=== PATIENT | female | born 1950 | race Caucasian/White ===

== ENCOUNTER 2019-09-17 10:07 | Inpatient (IN) | payer OTHER, MEDICARE ==
[2019-09-17] VITALS (12 sets, daily range): BP systolic 160–189; BP diastolic 91–115
[~2019-09-17] VITALS: Ht 167.6 cm; Wt 80.0 kg
[2019-09-17] MEDS ORDERED: OMEPRAZOLE 20 M20 M1 PO (10:16)
[2019-09-17] MEDS ORDERED: DIAZEPAM 10 MG10 M1 PO (10:16)
[2019-09-17] MEDS ORDERED: EZALLOR SPRINKLE5 MG PO (10:17)
[2019-09-17] MEDS ORDERED: REQUIP 0.25 M0.25 MG PO (10:17)
[2019-09-17 11:40] LABS: ABSOLUTE NEUTROPHILS 8.6 thou/uL (1.4-8.2); BASOPHILS 0.2 % (0.0-2.0); EOSINOPHILS 0.5 % (0.0-3.0); HEMATOCRIT 43.9 % (37.0-47.0); HEMOGLOBIN 15.3 gm/dL (12.0-15.0); LYMPHOCYTES 10.2 % (24.0-44.0); MCH 33.5 pg (26.0-34.0); MCV 95.7 fL (80.0-100.0); MONOCYTES 2.6 % (1.0-8.0); PLATELET COUNT 259 thou/uL (150-400); POLYS 86.5 % (36.0-66.0); RBC 4.58 mil/uL (4.20-5.00); RDW 11.4 % (10.5-14.5); WBC 9.9 thou/uL (4.0-11.0)
[2019-09-17 11:49] LABS: CALCIUM 9.3 mg/dL (8.5-10.1); CREATININE 0.8 mg/dL (0.6-1.0); POTASSIUM 3.9 mmol/L (3.5-5.1)
--- NOTE | 2019-09-17 13:06 | NUR ---
THE PT'S GOWN AND BED LINENS WERE CHANGED DO TO THE PT'S PLACING THE PT ON A BEDPAIN AND URINE SPILLING ON THE BED.
--- NOTE | 2019-09-17 15:18 | 2DMMODE ---
[facility] [address] [facility] [place] [address] 2 D/M-MODE ECHOCARDIOGRAM Name: JAYLA ORTIZ Room #: 170-6 ADM IN M.R.#: [id number] Admission: 09/17/19 Attend Phys: Sharath Oconnor MD Discharge: Date of : 52 Report #: [id number] THIS REPORT FOR: cc: Ness Wright MD, Cynthia MD Lammoglia, Francisco J. MD ~ APPROVED REPORT Study performed: 09/17/2019 14:17:34 EXAM: Comprehensive 2D, Doppler, and color-flow Echocardiogram Patient Location: ER Room #: 6 Status: routine BSA: 1.91 HR: 107 bpm BP: 177/109 mmHg Rhythm: Tachycardia Other Information Study Quality: Adequate Indications Dizziness and Vertigo Hypertension/HDD 2D Dimensions IVSd: 9.02 (7-11mm) LVOT Diam: 18.15 (18-24mm) LVDd: 38.75 mm PWd: 7.90 (7-11mm) Ascending Ao: 28.28 (22-36mm) LVDs: 24.66 (25-40mm) Aortic Root: 27.15 mm Aortic Valve AoV Peak Steve.: 0.99 m/s AO Peak Gr.: 3.89 mmHg LVOT Max P.93 mmHg LVOT Max V: 0.99 m/s JOAN Vmax: 2.60 cm2 Pulmonary Valve PV Peak Steve.: 0.98 m/s PV Peak Gr.: 3.85 mmHg Tricuspid Valve TR Peak Steve.: 2.83 m/s [facility] [address] [place] [address] 2 D/M-MODE ECHOCARDIOGRAM Name: JAYLA ORTIZ Room #: 170-6 ADM IN M.R.#: [id number] Admission: 09/17/19 Attend Phys: Luis Enrique Mijares Discharge: Date of : 52 Report #: [id number] TR Peak Gr.: 32.14 mmHg PA Pressure: 32.00 mmHg Left Ventricle The left ventricle is normal size. There is normal LV segmental wall motion. There is normal left ventricular wall thickness. Left ventricular systolic function is normal. The left ventricular ejection fraction is within the normal range. LVEF is 60-65%. This study is not technically sufficient to allow evaluation of the LV diastolic function. Right Ventricle The right ventricle is normal size. The right ventricular systolic function is normal. Atria The left atrium size is normal. The right atrium size is normal. Aortic Valve The aortic valve is normal in structure. No aortic regurgitation is present. There is no aortic valvular stenosis. Mitral Valve The mitral valve is normal in structure. There is no mitral valve regurgitation noted. No evidence of mitral valve stenosis. Tricuspid Valve The tricuspid valve is normal in structure. There is trace tricuspid regurgitation. Estimated PAP 32 mmHg plus the right atrial pressure. There is moderate pulmonary hypertension. Pulmonic Valve The pulmonary valve is normal in structure. There is no pulmonic valvular regurgitation. Great Vessels The aortic root is normal in size. IVC is normal in size and collapses >50% with inspiration. Pericardium There is no pericardial effusion. <Conclusion> The left ventricle is normal size. LVEF is 60-65%. [facility] [address] [place] [address] 2 D/M-MODE ECHOCARDIOGRAM Name: JAYLA ORTIZ Room #: 170-6 ADM IN [facility].#: [id number] Admission: 09/17/19 Attend Phys: Luis Enrique Mijares Discharge: Date of : 52 Report #: [id number] The aortic valve is normal in structure. The mitral valve is normal in structure. The tricuspid valve is normal in structure. There is trace tricuspid regurgitation. Estimated PAP 32 mmHg plus the right atrial pressure. There is moderate pulmonary hypertension. The pulmonary valve is normal in structure. There is no pericardial effusion. <ELECTRONICALLY SIGNED> By: Hemanth Kim MD 09/17/19 1517 1517 16 Hemanth Kim MD /INF
--- NOTE | 2019-09-17 16:04 | EKG ---
[facility] [place] [address] ELECTROCARDIOGRAM REPORT Name: JAYLA ORTIZ Room #: 217-P ADM IN M.R.#: [id number] Admission: 09/17/19 Attend Phys: Sharath Oconnor MD Discharge: Date of : 52 Report #: [id number] THIS REPORT FOR: cc: Ness Wright MD, Cynthia MD Couchonnal,Benny Velazquez MD ~ THIS REPORT FOR: //name// [facility] ED Test Date: 2019-09-17 Test Time: 10:19:03 Pat Name: JAYLA ORTIZ Department: Room: [facility] Gender: F Voucher Examiner: [facility] : 1950 Requested By: Mike Samuels Order Number: [id number] MD: Benny Emmanuel Measurements Intervals [place] Rate: 91 P: 50 AR: 205 QRS: 39 QRSD: 94 T: 52 QT: 356 QTc: 439 Interpretive Statements Sinus rhythm Low voltage, precordial leads No previous ECG available for comparison Electronically Signed On 09-17-2019 16:03:24 CDT by Benny Emmanuel [email or web address] <ELECTRONICALLY SIGNED> By: Benny Emmanuel MD 09/17/19 1603 1019 1019 Benny Emmanuel MD /EPI
--- NOTE | 2019-09-17 20:47 | NUR ---
ASSUMMED PT CARE AT APPROXIMATELY 1600. PT A&O X4. ASSESSMENT CHARTED. FALL PRECAUTIONS IN PLACE. PT DENIES HAVING CHEST PAIN. PT DENIES HAVING SOB. PT STATED SHE HAD HEADACHE. PT RECEIVED ANALGESICS. PT STATED ANALGESICS HELPED RELIEVE HEADACHE. PT STATED SHE HAD DIZZINESS. PT STATED MEDICATIONS DID NOT HELP C DIZZINESS. PRIOR TO PT HAVING CT, I SPOKE C DR. KELLEY REGAURDING LABETALOL ORDER. DR. KELLEY STATED TO WAIT TO GIVE LABETALOL AFTER CT. PT RETURNED FROM CT. LABETALOL GIVEN AFTER CT. BLOOD PRESSURE PARAMETERS FOLLOWED. SPOKE C DR. KELLEY REGAURDING CT RESULTS. DR. KELLEY STATED TO INFORM SASH STICKER HOSPITALIST REGAURDING POSSIBLE TRANSFER AND TO HAVE HOSPITALIST CALL HIM. CALLED Arnulfo SANCHEZ NP AND INFORMED HER OF DR. KELLEY'S MESSAGE. EVELIA SANCHEZ STATED UNDERSTANDING AND STATED SHE WOULD CALL DR. KELLEY. CALLED SASH STICKER WELDER FABRICATOR ROSIO OF POSSIBLE PT TRANSFER. WELDER FABRICATOR STATED UNDERSTANDING. GAVE SASH STICKER REPORT TO JAYLA Owens RN. JONATHON DICKERSON STATED UNDERSTANDING AND DENIED HAVING FURTHER QUESTIONS. INFORMED JONATHON DICKERSON OF POSSIBLE PT TRANSFER. JONATHON DICKERSON STATED UNDERSTANDING AND DENIED HAVING FURTHER QUESTIONS. DR. KELLEY CAME TO UNIT AFTER CT RESULTS, DR. KELLEY STATED TO NOT GIVE LABETALOL TO KEEP BLOOD PRESSURE ELEVATED. DR. KELLEY ALSO STATED TO KEEP PT NPO UNTIL FURTHER ORDER. COMMUNICATED INFORMATION TO SASH STICKER, JONATHON. SASH STICKER RN STATED UNDERSTANDING. PT COMFORTABLE IN BED. PT DENIED HAVING FURTHER CONCERNS. EDUCATED PT REGAURDING POC. PT STATED UNDERSTANDING. SEE NIH SCALE.
--- NOTE | 2019-09-17 22:00 | NUR ---
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 PT ALERT AND ORIENTED x4. DR. KELLEY AT BEDSIDE. PT AND APTT CHECKED BEFORE THE DOSE OF PLAVIX GIVEN. NIH SCALE ASSESSMENT EVERY TWO HOURS. FAMILY AWARE PT IS IN ICU PER PT HERSELF.KEEPING PT BP WITHIN 150-[address] KELLEY. PLAN FOR MRI TOMORROW. PT IS CLAUTROPHOBIC AND WANTS TO BE SEDATED BEFORE THE TEST.
[2019-09-17 23:51] LABS: APTT 25.9 Seconds (24.5-32.8); PROTIME 10.2 Seconds (9.3-11.4)
[2019-09-18] VITALS (25 sets, daily range): BP systolic 117–175; BP diastolic 63–91
[2019-09-18 02:06] LABS: GLYCOHEMOGLOBIN (HGB A1C) 5.9 % (4.8-5.6)
--- NOTE | 2019-09-18 06:28 | NUR ---
CALLED DR. KELLEY REGARDING PT BLOOD PRESSURE AT 120 SYSTOLIC THIS AM AFTER TWICE [address] KELLEY IS OKAY WITH BP AT 120 SYSTOLIC LONG THE PT IS ASYMPTOMATIC.
[2019-09-18 06:29] LABS: ABSOLUTE NEUTROPHILS 6.6 thou/uL (1.4-8.2); APTT 25.7 Seconds (24.5-32.8); BASOPHILS 0.3 % (0.0-2.0); EOSINOPHILS 1.1 % (0.0-3.0); HEMATOCRIT 42.1 % (37.0-47.0); HEMOGLOBIN 14.5 gm/dL (12.0-15.0); LYMPHOCYTES 21.7 % (24.0-44.0); MCH 33.1 pg (26.0-34.0); MCHC 34.5 g/dL (28.0-37.0); MCV 96.1 fL (80.0-100.0); MONOCYTES 7.7 % (1.0-8.0); PLATELET COUNT 293 thou/uL (150-400); POLYS 69.2 % (36.0-66.0); PROTIME 10.4 Seconds (9.3-11.4); RBC 4.38 mil/uL (4.20-5.00); RDW 11.5 % (10.5-14.5); WBC 9.5 thou/uL (4.0-11.0)
[2019-09-18 06:31] LABS: ANION GAP 8 mmol/L (7-16); BUN 10 mg/dL (7-18); CALCIUM 8.2 mg/dL (8.5-10.1); CHLORIDE 102 mmol/L (98-107); CO2 27 mmol/L (21-32); CREATININE 0.8 mg/dL (0.6-1.0); GLUCOSE 109 mg/dL (74-106); POTASSIUM 3.9 mmol/L (3.5-5.1); SODIUM 137 mmol/L (136-145)
[2019-09-18 06:37] LABS: CHOLESTEROL 198 mg/dL (<200); HDL CHOLESTEROL 36 mg/dL (>40); LDL CHOLESTEROL 125 mg/dL (<100); MAGNESIUM 1.8 mg/dL (1.8-2.4); TC:HDL 5.5 Ratio (Not establshd); TRIGLYCERIDE 187 mg/dL (<150); VLDL 37 mg/dL (<40)
[2019-09-18 06:43] LABS: SERUM ASSESSMENT Moderate Lipemia
--- NOTE | 2019-09-18 07:43 | NUR ---
ORDERS FOR EVAL AND TREAT HOWEVER Pt TRANSFERRED TO ICU. WILL HOLD AND AWAIT NEW ORDERS TO INITIATE WHEN APPROPRIATE
--- NOTE | 2019-09-18 08:03 | NUR ---
TOOK OVER CARE OF PATIENT AT 0700; PATIENT A/O X4, NEURO INTACT; C/O OF HEADACHE; DR. LOO WITH ENT CALLED TO CONFIRM REASON FOR ENT CONSULT - UPDATED ON PATIENT STATUS AND PLANS TO COME SEE PATIENT THIS AM.
--- NOTE | 2019-09-18 08:39 | NUR ---
PATIENT INITIALLY ADMITTED TO CCU BUT THEN TRANSFERRED TO ICU SO WE WILL NEED NEW ORDERS ONCE MEDICALLY APPROPRIATE.
--- NOTE | 2019-09-18 14:06 | NUR ---
INITIAL ASSESSMENT: SW reviewed chart and spoke with attending physician. Pt was admitted from home due to acute CVA. Neuro and ENT consulted. Attempt made to transfer to [facility] yesterday was unsuccessful. Pt to have MRI today. Therapy and [facility] consult ordered to evaluate pt for discharge needs. SW spoke with pt via phone. Introduced role of SW. Pt is alert/orientated x 4. Pt lives at home. Prior to admission, pt was independent with ADLs. No use of DME. Pt states she does have stairs at home that she is able to navigate independently. No hx of services or post-acute placement. Pt's PCP is Dr. Ness Wright. Pt does not anticipate and discharge needs at this time. SW is following to assist as needed with discharge planning.
[2019-09-19] VITALS (9 sets, daily range): BP systolic 149–174; BP diastolic 75–97
--- NOTE | 2019-09-19 10:31 | NUR ---
SW reviewed chart and spoke with nursing and attending physician. Pt remains in ICU. Therapy evals ordered. [facility] consulted and is following. SW discussed with [facility] rehabilitation teacher. [facility] rehab physician/DEBT RECOVERY OFFICER will evaluate pt following therapy evals to determine if pt meets criteria for inpt acute rehab. SW is following to assist as needed with discharge planning.
--- NOTE | 2019-09-19 13:37 | NUR ---
TRANSFERING PATIENT TO ROOM 219 WITH TECH. CAMARA.
--- NOTE | 2019-09-19 16:00 | NUR ---
Consult rec'd for [facility] tx. Neuro recommending vascular neurologist and pt/family also requesting tx to [facility] [place] [facility]. [place]erral called to the transfer RN at [phone] and face sheet and clinical faxed to [phone] for their review. Radiology to upload to [facility] via the cloud and make a disc for chart copy. Unit sec is working on the chart copy. Nursing updated along with the attending. Awaiting response from [facility]. [facility] ambulance form is complete and on the chart as well as the cobra transfer form. Will follow.
--- NOTE | 2019-09-19 21:13 | NUR ---
ASSUMED CARE OF PATIENT AT 1400 FROM ICU. ASSESSMENT COMPLETED. PATIENT IS ACCOMPANIED BY HER . HE IMMEDIATELY VOICES HIS DESIRE TO BE TRANSFERRED TO OR [facility]. COMMUNICATION IMMEDIATELY BEGUN WITH DR. MORIN, DR. KELLEY AND MINDY WITH CASE MANAGEMENT. DR. KELLEY SAW PATIENT ON UNIT AND REITERATED TO HER THAT SHE IS TO LIMIT HER NECK MOVEMENT AND SIT UP NO MORE THAN 30 DEGREES. PATIENT COMPLAINS OF CONTINUED VERTIGO THAT IS MINIMAL LONG SHE DOES NOT CHANGE POSITIONS. TRANSFER TO DENIED AND VOICED TO THE PATIENT AND DR. KELLEY. TRANSFER TO [facility] ON HOLD DUE TO HOSPITAL BEING CLOSED TO DIVERSIONS. MINDY WITH CASE MANAGEMENT STATES THAT SHE WILL BEGIN THIS PROCESS AGAIN IN THE MORNING WITH [facility] AND THIS WAS VOICED TO THE PATIENT WELL. PATIENT IS VERY UNDERSTANDING. PATIENT DOES NOT HAVE ANY DRIFT, DROOP OR DEFICITS OF ANY KIND. PATIENT TO CONTINUE WITH POC.
[2019-09-20 03:57] VITALS: BP 154/90
--- NOTE | 2019-09-20 07:31 | NUR ---
patient is progressing slowly in her care plan. vital signs stable with patient having no complaints of nausea. patient did complain of pain frequently due to headache which was treated appropriately through medications. reports of dizziness during the night which was treated appropriately. no s/s of cva. continue plan of care.
[2019-09-20 08:10] VITALS: BP 147/95
--- NOTE | 2019-09-20 14:47 | NUR ---
Case discussed with the care team. [facility] [place] RN has called back x 2 to indicate that [facility] is still full. They are holding pt's referral and tx request until a tele bed is available, then they will assess. They have her face sheet and clinical and her rad is uploaded to the cloud. Her chart copy, rad disc, transfer form and kcfd form are all ready should [facility] accept. [facility] acute rehab is following and can accept the pt for admission once cleared medically. Neuro would like the pt to stay under close observation another 2 days. Possible dc to rehab monday or monday if medically ready. Pt is agreeable to tx to [facility] acute inpt or [facility] re[facility]. Will follow.
[2019-09-20 17:30] VITALS: BP 177/99
--- NOTE | 2019-09-20 19:31 | NUR ---
ASSUMED CARE PT SHIFT CHANGE. ASSESSMNETS CHARTED.MEDS GIVEN PER JUN. PT ALERT AND ORIENTED.VSS EXCEPT FOR HIGH BP, PROVIDERS AWARE FOR PERMISSIBLE HTN. PT FOLLOWING ORDERS FOR LOW HOB ELEVATION AND BEDREST, TOLERATING WELL. PT HAD MRI THIS SHIFT- REQUESTED VALIUM AND REQUIP BEFORE PROCEDURE. ORDERS RECEIVED PER NEURO AND HOSPITALIST. SHORTLY AFTER MRI PROCEDURE PT BEGAN HAVING DIZZINESS WITH VOMITING AND HEADACHE. PT LETHARGIC UPON ASSESSMENT BUT STILL AROUSABLE AND ANSWERING QUESTIONS. NEURO AND HOSPITALIST NOTIFIED. ORDERS RECEIVED. BP ELEVATED 203 SYSTOLIC, PROVIDER NOTIFIED, ORDERS RECEIVED. STAT CT HEAD ORDERED. REFER TO RESULTS. BP RESOLVING, PT BECAME MUCH MORE AWAKE AND FEELING BETTER. PT ACCEPTED BY [facility]. REPORT GIVEN TO NURSE [place]. TRANSFER FORM COPIED AND PUT IN CHART. NON EMERGENT AMBULANCE CALLED AND NOTIFIED. PT C/O PAIN AT APPROX 1900, PO PAIN MEDS GIVEN. AMBULANCE ARRIVED AT APPROX 1915. PT TRANSFERRED OUT, TO FOLLOW TO [facility], TELE REMOVED. PT LEFT WITH ALL BELONGINGS. PAPERWORK GIVNE TO AMBULANCE.
--- NOTE | 2019-09-25 12:02 | HC ---
[facility] [place] [address] CONSULTATION Name: JAYLA ORTIZ Room #: 219-P [facility] IN M.R.#: [id number] Admission: 09/17/19 Attend Phys: Sharath Oconnor MD Discharge: 09/20/19 Date of : 52 Report #: [id number] THIS REPORT FOR: cc: Ness Wright MD,Bk Coelho MD, MD ~ CC: Sharath Wright DATE OF SERVICE: 09/17/2019 HISTORY OF PRESENT ILLNESS: This is a 68-year-old female patient who was evaluated by me for any neurological etiology for dizziness because of the patient's CT scan has indicated a stroke. Getting the history in this patient, it looks like this dizziness is going on for some time. To the Emergency Room doctor, they have indicated that it is going on for a month and it became worse yesterday. To me they give a different history that she has it somewhere in 2005 or 2007 and since then she had a regular episode. She takes Valium and that helps. She was supposed to see an ENT physician, but she never did. She has thrown up. She had some diarrhea. She is extremely dizzy. Her CT scan does demonstrate a stroke, it is in the anterior circulations. I reviewed the films with the radiologist, it does not look like it has any relationship to the patient's dizziness the best we can tell at the moment. REVIEW OF SYSTEMS: Indicate that she had similar episodes in the past. She denies any anxiety. She has taken something for restless leg syndrome. She does have a history of hyperlipidemia. This was a relevant 14-point review of system. PAST MEDICAL HISTORY: Positive for similar spells in the past, but she had never had any workup. FAMILY HISTORY: Noncontributory. SOCIAL HISTORY: She drinks alcohol only on special occasions. PHYSICAL EXAMINATION: Indicate that is limited. She is complaining of a lot of dizziness. They have given her virtually everything, but the dizziness is not any better, but she is alert, oriented. Cranial nerve examination does not appear to be showing any nystagmus. She has a symmetrical stance. It is difficult to tell about cerebellar sign. Her position sense looks intact. Reflexes are symmetrical. Blood pressure is persistently running high. LABORATORY DATA: Indicated normal white count. Her sodium is somewhat down. [address] [address] CONSULTATION Name: JAYLA ORTIZ Room #: 219-P [facility] IN M.R.#: [id number] Admission: 09/17/19 Attend Phys: Sharath Oconnor MD Discharge: 09/20/19 Date of : 52 Report #: [id number] She had a CT scan of the head, which was reviewed with the radiologist. IMPRESSION: I don't know what the etiology of the patient's dizziness is. Statistically, it is more likely to be secondary to ENT pathology, then neurological pathology. Hypertensive encephalopathy can cause similar problem, but she said she never had any hypertension before. The possibility of this being anything neurological including anything in the basilar artery or posterior fossa is there, especially because she never had any workup, but is less likely. I discussed the situation with the patient and the . I told them the ideal test is getting an MRI and MRA done and I strongly recommended that. I had multiple conversations with the patient and she adamantly refused MRI and she indicated that she cannot do MRI because she is still claustrophobic. Because of that, I discussed with them CT angio and its pros and cons. I specifically discussed allergic reaction and virtually all the potential side effect, which can occur making her present situation worse. She understood all those. She is willing to take that risk. CT angiogram of the head and neck will be done. If it shows any blockage then we need to treat accordingly. Otherwise, I think her hypertension need to be treated and ENT need to be consulted. Further management will be as per ENT. Her blood pressure may have to be closely monitored and if we cannot monitor in telemetry, she may have to go to ICU. Since she has thrown up, I will also give her some thiamine because I do not know how much nausea, vomiting she had. About 50 minutes of time was spent taking care of this patient and majority of that time was spent counseling and coordinating. The patient was discussed with multiple times, ER doctor, , the patient herself, nurses on telemetry and Dr. Gerber who is the admitting provider. <ELECTRONICALLY SIGNED> By: Bk Hinton MD 09/25/19 1202 1618 1701 Bk Hinton MD /nt
--- NOTE | 2019-10-04 11:38 | HC ---
[facility] [place] [address] CONSULTATION Name: JAYLA ORTIZ Room #: 219-P [facility] IN M.R.#: [id number] Admission: 09/17/19 Attend Phys: Sharath Oconnor MD Discharge: 09/20/19 Date of : 52 Report #: [id number] THIS REPORT FOR: cc: Ness Wright MD,Ness Hines,Richard Villeda MD ~ CC: Sharath Wright DATE OF SERVICE: 09/18/2019 HISTORY OF PRESENT ILLNESS: The patient is a 68-year-old white female who was admitted with unresolved vertigo. She apparently had symptoms for the past month or so and the symptoms got worse and worse. She was having severe nausea, vomiting, and diarrhea. She lost her balance a couple of times. CT of the head showed a right basal ganglia, hypotension, thought to be a subacute versus old stroke. Neurology saw her with recommendations for CTA and ENT evaluation and controlling her blood pressure. She is currently being managed in the ICU. CTA did show a question of a filling defect basilar artery with concern regarding a thrombus. There also was noted to be a nonocclusive thrombus, right proximal vertebral artery high-grade stenosis distal right vertebral artery at the base of the skull. The patient is claustrophobic and has been refusing an MRI, but the plan is to sedate her for an MRI and if necessary to even consider using anesthesia. She also was seen by ENT and the recommendations are for outpatient followup and outpatient therapy focused on her complaints of vertigo. We are seeing her in rehabilitation medicine consultation. PAST MEDICAL HISTORY: Prior medical history includes elevated lipids vertigo as noted above. HABITS: Prior past history of some light tobacco usage is noted. ALLERGIES: No known drug allergies. MEDICATIONS: Please see the full medication listing. SOCIAL HISTORY: Lives in a house, 2 floors. There are 5 steps to get into the house. The bedroom is upstairs. She did not utilize any gait aids. 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 She notes that premorbidly she has been active and has 6 grandchildren. REVIEW OF SYSTEMS: Did not offer any current complaints of chest pain, shortness of breath or abdominal discomfort. PHYSICAL EXAMINATION: GENERAL: A 68-year-old white female in no obvious distress. [address] [address] CONSULTATION Name: JAYLA ORTIZ Room #: 219-[facility] IN M.R.#: [id number] Admission: 09/17/19 Attend Phys: Sharath Oconnor MD Discharge: 09/20/19 Date of : 52 Report #: [id number] VITAL SIGNS: Last recorded temperature 97.9, pulse 101, respirations 16, blood pressure 136/73. She is alert, pleasant, oriented. HEENT: Appeared to be benign. EOMs appeared full. There is no note of any obvious nystagmus. No visual field deficit was noted. Facies appeared symmetric. NEUROLOGIC: She has functional range of motion of both upper and lower extremities. Appears to have good strength. Reflexes appeared symmetrical. I did not get her up as she is currently being monitored in the intensive care unit. ASSESSMENT: A 68-year-old white female with the following problem list: 1. Vertebral artery thrombus. 2. 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 3. Unresolved vertigo with lost balance prior. 4. Hypertensive urgency. 5. Subacute versus old stroke, right basal ganglia. PLAN: Further evaluation is underway with MRI ordered with sedation as noted. Therapies to evaluate as she medically stabilizes. We will need to see how she does functionally and proceed from there. We will be glad to follow along with you regarding her rehab therapy needs. <ELECTRONICALLY SIGNED> By: Richard Hines MD 10/04/19 1138 1030 1625 Richard Hines MD /nt
== END 2019-09-20 19:20 | disposition short-term general hospital (02) | DRG 65 ==
LOC: ER 10:07 → ICU 14:43 → EROBS 14:43 → 2N 15:51 → ICU 22:12 → 2N 09-19 14:03
PROVIDERS: Emergency Medicine; Nurse Practitioner; Psychiatry & Neurology Neuromuscular Medicine; ADMIT Hospitalist; ATTEND Hospitalist
DX: I63.011 Cerebral infarction due to thrombosis of right vertebral artery (principal); I67.4 Hypertensive encephalopathy; I16.0 Hypertensive urgency; E78.5 Hyperlipidemia, unspecified; Z87.891 Personal history of nicotine dependence; Z79.82 Long term (current) use of aspirin; Z79.899 Other long term (current) drug therapy
CPT/HCPCS: 10078; 10081